=== PATIENT | male | born 1960 | race African-American/Black ===

== ENCOUNTER 2022-12-05 14:09 | Emergency (ER) | payer MEDICAID ==
[~2022-12-05] VITALS: Ht 175.3 cm; Wt 54.0 kg
[2022-12-05 14:12] VITALS: TEMP 98.5; O2SAT 99
[2022-12-05 15:45] VITALS: BP 112/74; PULSE 73; RESP 23
[2022-12-05] MEDS ORDERED: KETOROLAC 60MG/2ML VIAL IM ONE (15:45)
[2022-12-05] MEDS ORDERED: MELO-105 MT (20:27)
== END 2022-12-05 20:45 | disposition home or self-care (01) ==
LOC: ER 14:09
DX: M79.672 Pain in left foot (principal); Z98.890 Other specified postprocedural states
CPT/HCPCS: 93971; 73562; 96372; 99285; J1885; Z7610

== ENCOUNTER 2023-02-13 17:20 | Emergency (ER) | payer MEDICAID ==
[~2023-02-13] VITALS: Ht 175.3 cm; Wt 73.0 kg
[~2023-02-13 17:20] MED LIST: MELO-105 MT
[2023-02-13 17:33] VITALS: TEMP 98.9; O2SAT 100
[2023-02-13] MEDS ORDERED: IBUPROFEN 600MG TABLET PO ONE (20:15)
[2023-02-13 20:21] VITALS: BP 123/83; PULSE 86; RESP 16
== END 2023-02-13 20:34 | disposition home or self-care (01) ==
LOC: ER 17:20
DX: M25.552 Pain in left hip (principal); N50.3 Cyst of epididymis; N43.3 Hydrocele, unspecified
CPT/HCPCS: 73502; 76870; 93976; 99284

== ENCOUNTER 2023-08-15 12:20 | Emergency (ER) | payer MEDICAID ==
[~2023-08-15] VITALS: Ht 175.3 cm; Wt 77.0 kg
[2023-08-15 12:35] VITALS: TEMP 98; O2SAT 100
[2023-08-15 15:05] VITALS: BP 114/70; PULSE 60; RESP 16
[2023-08-15] MEDS: KETOROLAC 30MG/ML VIAL IM ONE (15:05)
[2023-08-15] MEDS ORDERED: IBUP-2030 MT (18:09)
[2023-08-15] MEDS ORDERED: GABA-529 MT (18:11)
== END 2023-08-15 18:16 | disposition home or self-care (01) ==
LOC: ER 12:20
DX: M16.0 Bilateral primary osteoarthritis of hip (principal); G89.29 Other chronic pain; Z98.890 Other specified postprocedural states; Z88.0 Allergy status to penicillin
CPT/HCPCS: 72148; 99284; 73522; 72195; J1885

== ENCOUNTER 2023-10-30 14:15 | Emergency (ER) | payer MEDICAID ==
[~2023-10-30] VITALS: Ht 177.8 cm; Wt 72.0 kg
[~2023-10-30 14:15] MED LIST changes: +GABA-529 MT; +IBUP-2030 MT
[2023-10-30 14:23] VITALS: O2SAT 100
[2023-10-30] MEDS: CYCLOBENZAPRINE 10MG TABLET PO SCH (15:37)
[2023-10-30] MEDS ORDERED: LIDO700A15 TP (15:37)
[2023-10-30] MEDS ORDERED: NAPR-1176 MT (15:37)
[2023-10-30] MEDS: MORPHINE SULFATE 4 MG/ML INJ (FOR IV/IM USE) IM ONE (15:38)
[2023-10-30 16:01] VITALS: BP 110/57; PULSE 60; RESP 20; TEMP 98.1
== END 2023-10-30 16:04 | disposition home or self-care (01) ==
LOC: ER 14:15
DX: G89.29 Other chronic pain (principal); M54.6 Pain in thoracic spine; M54.50 Low back pain, unspecified; Z98.890 Other specified postprocedural states; Z88.0 Allergy status to penicillin; Z79.899 Other long term (current) drug therapy
CPT/HCPCS: 96372; 99283; J2270; Z7610